=== PATIENT | male | born 1985 | race Caucasian/White ===

== ENCOUNTER 2018-02-05 14:17 | Emergency (ER) | payer OTHER ==
[~2018-02-05] VITALS: Ht 193 cm; Wt 131.5 kg
[~2018-02-05 14:17] MED LIST: ALEVE220 MG PO; AUGMENTIN 875-1 EACH PO; BACTRIM DS TAB1 EACH PO; CEPHALEXIN500 MG PO; CLINDAMYCIN HC300 MG PO; CORTISPORIN EAR10 ML AD; CYCLOBENZAPRINE10 MG PO; DOXYCYCLINE HY100 MG PO; HYDROCODON-ACE1 EA10 PO; IBUPROFEN800 MG PO; KEFLEX500 MG PO; LIDOPIN28 GM TP; MELOXICAM7.5 MG PO; NAPROXEN500 MG PO; NASACORT10.8 ML NAS; NICOTINE PATCH1 EAC3 TD; NORCO 5-325 TA1 EACH PO; PERCOCET 10-321 EACH PO; PERCOCET 5-3251 EACH PO; RIFADIN300 MG PO; ROBAXIN-750750 MG PO; TERBINAFINE HCL30 GM TOP; TRAMADOL HCL50 MG PO; VALIUM5 MG PO; VICODIN 5-3001 EACH PO; VOLTAREN-XR100 MG PO
[2018-02-05] MEDS ORDERED: BACTRIM DS TAB1 EACH PO (15:11)
== END 2018-02-05 15:37 | disposition home or self-care (01) ==
LOC: ED 14:17
DX: L08.9 Local infection of the skin and subcutaneous tissue, unspecified (principal); F17.200 Nicotine dependence, unspecified, uncomplicated
CPT/HCPCS: 99283

== ENCOUNTER 2018-07-03 14:55 | Emergency (ER) | payer OTHER ==
[~2018-07-03] VITALS: Ht 195.6 cm; Wt 127.0 kg
[2018-07-03] MEDS ORDERED: NORCO 5-325 TA1 EACH PO (15:55)
== END 2018-07-03 16:23 | disposition home or self-care (01) ==
LOC: ED 14:55
DX: S83.92XA Sprain of unspecified site of left knee, initial encounter (principal); X58.XXXA Exposure to other specified factors, initial encounter; J45.909 Unspecified asthma, uncomplicated; F17.200 Nicotine dependence, unspecified, uncomplicated
CPT/HCPCS: 73560; 99283-25

== ENCOUNTER 2019-08-20 07:31 | Day surgery (SDC) | payer OTHER ==
[~2019-08-20] VITALS: Ht 193 cm; Wt 124.7 kg
[2019-08-20] MEDS ORDERED: CHANTIX1 MG PO (07:47)
--- NOTE | 2019-08-20 09:34 | NUR ---
08/20/19 0934 Celeste,Joceline 0931 PT ARRIVED TO PACU ON 3L VIA NC, PT WAKES EASILY TO VERBAL STIMULI. RESP EVEN AND UNLABORED. PT REORIENTED TO PACU AND ENCOURAGED TO PASS AIR/GAS. PT FALLS BACK TO SLEEP, SNORING NOTED.
--- NOTE | 2019-08-21 06:14 | OR ---
[facility] [address], [place] [address] Signed DATE OF OPERATION: 08/20/2019 SURGEON: Troy Rebolledo MD PREOPERATIVE DIAGNOSES: 1. Sister with history of Crohn disease, age 28. 2. Rectal bleeding and pain. 3. Left lower quadrant and suprapubic abdominal pain. 4. Chronic diarrhea and constipation. POSTOPERATIVE DIAGNOSES: 1. Minimal internal hemorrhoids. 2. Tiny shallow acute posterior midline anal fissure. PROCEDURE: Colonoscopy with random cold biopsies. ESTIMATED BLOOD LOSS: None. INDICATIONS: Sherron is a 34-year-old gentleman asked to see me for a colonoscopy. He said he is having anal issues. He told me his sister was diagnosed with Crohn disease around age 28. He has had intermittent rectal bleeding and some pain. Overall, I think it is better. In the office, he thought it was better but not quite gone. He also talked about pain in the left lower quadrant and suprapubic area for about four months. He said he has had chronic diarrhea and constipation for a long time. He talked about a stool sample in December of 2018. It was negative. His primary care provider, I have asked him to see me with respect to the above. I gave him a pamphlet on colonoscopy. We looked at that together along with the risks including, but not limited to gas bloating, crampy abdominal pain, bleeding, perforation requiring surgery, and missed diagnosis. We also discussed the need for IV conscious sedation. Given his prior history of methamphetamine abuse and his current history of marijuana, I had warned him that he may or may not be adequately sedated with our Versed and fentanyl. If that were the case, we might have to reschedule with an anesthesia provider. He had expressed understanding and wished to proceed. PROCEDURE NOTE: Sherron was taken into our endoscopy suite and placed in the left lateral decubitus position. He was given a total of 10 mg of Versed and 200 mcg of fentanyl to cover the Electronically Signed By: TROY REBOLLEDO MD 08/21/19 0614 PATIENT NAME: SHERRON HINTON OPERATIVE REPORT DATE OF : 87 REPORT #: [id number] PHYSICIAN: TROY REBOLLEDO MD PCP: PILI MOODY REPORT IS CONFIDENTIAL AND NOT TO BE RELEASED WITHOUT AUTHORIZATION [facility] [address], [place] [address] Signed case. A digital rectal exam was performed and I could see a very tiny shallow anal fissure in the posterior midline. This is acute and is healing well. I am sure in another week or two it will be gone. He had good sphincter tone. He does have what looks like chronic pale ridges of skin around the anus and I wonder if he does not have some chronic pruritus ani. After this, the adult colonoscope was introduced and advanced under direct visualization of the camera into the cecum itself. It took extra sedation and abdominal compression in order to advance the scope. His prep was slightly below average. We had taken pictures throughout for photodocumentation. We could see the appendiceal orifice and the ileocecal valve. We made two attempts to turn the camera into the ileum without success. He was moving around quite a bit even with significant Versed and fentanyl. Consequently, we slowly withdrew the scope. We took random biopsies throughout his entire colon and rectum. Nevertheless, we saw no evidence of any inflammatory changes or other concerns in his colon or rectum. Upon retroflexion of the scope, he has some very routine small internal hemorrhoid tissue. No evidence of any recent or acute bleeding. The gas was then suctioned out. The colonoscope removed. Sherron tolerated the procedure quite well. RECOMMENDATIONS: I will see Sherron back in my office in 7 to 14 days to review his results. I suspect this is all from an acute fissure that is almost healed. Troy Rebolledo MD ALB/MODL /[id number] cc: MARLA Bee MD Copies: TROY REBOLLEDO MD ~ Electronically Signed By: TROY REBOLLEDO MD 08/21/19 0614 PATIENT NAME: SHERRON HINTON OPERATIVE REPORT DATE OF : 87 REPORT #: [id number] PHYSICIAN: TROY REBOLLEDO MD PCP: PILI MOODY REPORT IS CONFIDENTIAL AND NOT TO BE RELEASED WITHOUT AUTHORIZATION
--- NOTE | 2019-08-21 14:54 | PATH ---
[facility] [address] [place], [place] [address] Signed SPECIMEN(S): A COLON SPECIMEN SOURCE: A. COLON CLINICAL HISTORY: Preop: Family history colon CA; diarrhea. Postop: Minimal internal hemorrhoids. MICROSCOPIC DESCRIPTION: Sections reveal multiple biopsies of colonic mucosa. The epithelial surface is intact and has retained mucus-secreting ability. The basement membrane is not thickened. Glands are simple and tubular and reach all the way to the muscularis mucosae. The lamina propria is not expanded and contains small numbers of plasma cells, lymphocytes and infrequent eosinophils. No acute inflammatory cells, excess intraepithelial lymphocytes, crypt abscess, areas of fibrosis, or granulomas are seen. There is no evidence of malignancy or atypia. LJA:emb FINAL PATHOLOGIC DIAGNOSIS: Mucosa, colon, random biopsies: - No microscopic pathologic diagnosis. LJA:emb:C2NR GROSS DESCRIPTION: The specimen, labeled "NC, #1," is received in formalin and consists of five ovalle soft tissue fragment(s) that measure 0.3-0.4 cm in greatest dimension. The specimen is entirely submitted in cassette (A1). FB (under the direct supervision of a pathologist) The Gross Description was prepared using a voice recognition system. The report was reviewed for accuracy; however, sound-alike word errors, addition and/or deletions may occur. If there is any question about this report, please contact Client Services. PERFORMING LABORATORY: The technical component was performed by [facility], [address] [place] [id number] (Power Operator: Tami Shultz MD; CLIA# [id number]). [facility] [address] [address] (CLIA# [id number]). PATIENT NAME: SHERRON HINTON PATHOLOGY DATE OF : 87 REPORT #: [id number] PHYSICIAN: [facility] PCP: PILI MOODY REPORT IS CONFIDENTIAL AND NOT TO BE RELEASED WITHOUT AUTHORIZATION [address] [place] [address] Signed Diagnostician: Cameron Snyder MD Pathologist Electronically Signed 08/21/2019 Copies: ~ PATIENT NAME: SHERRON HINTON PATHOLOGY DATE OF : 87 REPORT #: [id number] PHYSICIAN: [facility] PATH[facility] PCP: PILI MOODY REPORT IS CONFIDENTIAL AND NOT TO BE RELEASED WITHOUT AUTHORIZATION
== END 2019-08-20 10:21 | disposition home or self-care (01) ==
LOC: OPS 07:31 → DS 07:31 → OPS 09:00 → DS 09:00 → OPS 10:21
PROVIDERS: Colon & Rectal Surgery
PROC: 0DBE8ZX Excision of Large Intestine, Via Natural or Artificial Opening Endoscopic, Diagnostic (ICD-10-PCS; principal; 2019-08-20 09:00)
DX: K64.8 Other hemorrhoids (principal); K60.0 Acute anal fissure; K52.9 Noninfective gastroenteritis and colitis, unspecified; F17.210 Nicotine dependence, cigarettes, uncomplicated; K59.00 Constipation, unspecified; Z87.19 Personal history of other diseases of the digestive system; Z79.899 Other long term (current) drug therapy
CPT/HCPCS: 99153; G0500; J2250; J3010

== ENCOUNTER 2020-11-14 15:09 | Emergency (ER) | payer OTHER ==
[~2020-11-14] VITALS: Ht 193 cm; Wt 144.7 kg
[~2020-11-14 15:09] MED LIST changes: +CHANTIX1 MG PO
[2020-11-14] MEDS ORDERED: FUROSEMIDE20 MG PO (15:27)
[2020-11-14] MEDS ORDERED: CEPHALEXIN500 MG PO (18:43)
[2020-11-14] MEDS ORDERED: HYDROCODON-ACE1 EA10 PO (18:54)
--- NOTE | 2020-11-14 19:23 | EKG ---
[facility] [address] [facility] [place], [place] [address] Signed Sinus tachycardia Otherwise normal ECG When compared with ECG of 22-OCT-2016 15:33, No significant change was found Confirmed by GUMARO KRUEGER DO ([id number]) on 11/14/2020 7:23:45 PM Electronically Signed By: GUMARO KRUEGER DO 11/14/201922 PATIENT NAME: SHERRON HINTON JAYNA Electrocardiogram DATE OF : 87 PHYSICIAN: GUMARO KRUEGER DO REPORT #: [id number] REPORT IS CONFIDENTIAL AND NOT TO BE RELEASED WITHOUT AUTHORIZATION
== END 2020-11-14 19:12 | disposition home or self-care (01) ==
LOC: ED 15:09
DX: L03.116 Cellulitis of left lower limb (principal); R60.0 Localized edema; J45.909 Unspecified asthma, uncomplicated; F17.200 Nicotine dependence, unspecified, uncomplicated; Z79.899 Other long term (current) drug therapy
CPT/HCPCS: 71045; 80053; 83735; 83880; 84484; 85025; 93005; 93010; 99284-25; J7030

== ENCOUNTER 2022-11-17 17:15 | Emergency (ER) | payer OTHER ==
[~2022-11-17] VITALS: Ht 193 cm; Wt 137.0 kg
[~2022-11-17 17:15] MED LIST changes: +FUROSEMIDE20 MG PO
[2022-11-17] MEDS ORDERED: HYDROCODON-ACE1 EA10 PO (19:17)
[2022-11-17] MEDS ORDERED: LEVOFLOXACIN500 MG PO (19:17)
[2022-11-17 20:24] VITALS: BP 142/87
== END 2022-11-17 20:26 | disposition home or self-care (01) ==
LOC: ED 17:15
DX: N45.1 Epididymitis (principal); F17.200 Nicotine dependence, unspecified, uncomplicated
CPT/HCPCS: 36415; 76870; 80053; 81003; 83605; 85025; 85610; 85730; 96365; 96375; 96376; 99284-25; A9270; J0696; J1170

== ENCOUNTER 2022-11-21 15:10 | Inpatient (IN) | payer OTHER ==
[~2022-11-21] VITALS: Ht 193 cm; Wt 138.0 kg
[~2022-11-21 15:10] MED LIST changes: +LEVOFLOXACIN500 MG PO
--- OUTSIDE RECORDS SUMMARY | 2022-11-21 15:12 | XMS ---
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 Care History Medical/Surgical 07/05/2018 [facility] SET UP PCP APT FOR PATIENT TO ESTABLISH CARE WITH PCP JANE HUNT AT [facility]. - DATE OF APT IS 07/17/18 @ 10:45AM. E.D. VISIT COUNT (12 MO.) [address] [facility]. TOTAL 2 NOTE: Visits indicate total known visits. ED/UCC VISIT TRACKING (12 MO.) 11/21/2022 15:[address] [facility] [place] TYPE: Emergency COMPLAINT: - GENITAL PAIN 11/17/2022 17:18 [facility] [place] TYPE: Emergency COMPLAINT: - PAIN IN GENITAL AREA INPATIENT VISIT TRACKING (12 MO.) No inpatient visits to display in this time frame [email or web address]
[2022-11-21 20:52] VITALS: BP 113/93
--- NOTE | 2022-11-21 21:01 | NUR ---
PT TO FLOOR WITH [facility] VIA STRETCHER. BEDSIDE REPORT RECEIVED. PT ALERT AND ORIENTED. ABLE TO TRANSFER SELF FROM STRETCHER TO BED. VS WNL. SCROTAL EDEMA AND REDNESS NOTED. SCROTUM ELEVATED ON TOWEL. DIRECTOR OF OPERATIONS HOME HEALTH IN ROOM FOR ADMISSION.
--- NOTE | 2022-11-21 21:07 | NUR ---
PATIENT ARRIVED TO THE FLOOR VIA STRECTCHER. PATIENT ABLE TO SLEF TRANSFER FROM STRETCHER TO BED. PATIENTS ADMISSION COMPLETED. IV ABX INFUSING PER ORDER. PLAN OF CARE DISCUSSED AND ALL QUESTIONS ANSWERED. PATIENT DENIES ANY NEEDS. PATIENT RATES PAIN IN SCROTUM AT A 2/10 AND DENIES THE NEED FOR PAIN MEDICATION AT THIS TIME. CALL LIGHT IN REACH.
--- NOTE | 2022-11-21 22:43 | NUR ---
ADMISSION ASSESSMENT COMPLETE. PT REPORTS SCROTAL PAIN "CREEPING UP" PRN FOR PAIN ADMIN PER EMAR. SCROTUM REMAINS ELEVATED. PT DENIES NAUSEA. IV ABX INFUSING WNL. PT ORIENTED TO ROOM AND NURSE CALL LIGHT. PT DENIES QUESTIONS OR CONCERNS. CALL LIGHT IN REACH.
[2022-11-22] VITALS (7 sets, daily range): BP systolic 121–155; BP diastolic 75–91
--- NOTE | 2022-11-22 00:24 | NUR ---
PT RESTING IN BED WITH EYES CLOSED. RESPIRATIONS EVEN. CALL LIGHT IN REACH.
--- NOTE | 2022-11-22 02:10 | NUR ---
PT RESTING IN BED WITH EYES CLOSED. AWAKENS EASILY. VS OBTAINED. PT DUE TO VOID. WATER GLASS FILLED. REPORTS SCROTAL PAIN IS TOLERABLE. SCROTUM ELEVATED ON TOWEL. NO FURTHER NEEDS AT THIS TIME. CALL LIGHT IN REACH.
--- NOTE | 2022-11-22 04:13 | NUR ---
PT RESTING IN BED WITH EYES CLOSED. RESPIRATIONS EVEN. CALL LIGHT IN REACH.
--- NOTE | 2022-11-22 06:00 | NUR ---
PT UP TO BR WITH SBA TO VOID 500 ML YELLOW URINE. GAIT STEADY. BACK TO BED, GRACIE FAIR. PRN FOR 5/10 SCROTAL PAIN ADMIN PER EMAR. VS AND I&O OBTAINED. NO FURTHER NEEDS.
--- NOTE | 2022-11-22 06:43 | NUR ---
CALL LIGHT ANSWERED. PT WITH LARGE EMESIS. PRN FOR N/V ADMIN PER EMAR. IV ABX INFUSING PER ORDER. NO FURTHER NEEDS.
--- NOTE | 2022-11-22 07:26 | NUR ---
REPORT FROM CLARISSA BINGHAM.
--- NOTE | 2022-11-22 08:51 | NUR ---
MORNING ASSESSMENT IS COMPLETE. PATIENT RATES SCROTAL PAIN 4/10 AFTER PAIN MEDICATIONS. SCROTUM IS ELEVATED, PATIENT IS ABLE TO HESITANTLY VOID, NO DRAINAGE NOTED. IV DAPTOMYCIN GIVEN. 4-HOUR IV ZOSYN IS CURRENTLY INFUSING. PATIENT FAMILY IN TO VISIT. NO OTHER NEEDS AT THIS TIME.
--- NOTE | 2022-11-22 09:05 | NUR ---
PATIENT GIVEN IV DILAUDID FOR 4/10 SCROTAL PAIN. PLAN TO GIVEN PERCOCET AT 1000.
--- NOTE | 2022-11-22 10:16 | NUR ---
PT CALL LIGHT ANSWERED. PT REQ BR NEEDS. PT ASSISTED TO BR. SBA. PT TO PULL CALL LIGHT WHEN DONE. PT PULLED CALL LIGHT. PT BACK TO BED. NO NEEDS. CALL LIGHT WITHIN REACH
--- NOTE | 2022-11-22 11:31 | NUR ---
PATIENT REPORTS 2/10 PAIN, WOULD LIKE TO TAKE A SHOWER TODAY.
--- NOTE | 2022-11-22 11:46 | NUR ---
SPOKE TO PATIENT ABOUT THE DISCHARGE PLAN. 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 PATIENT HAS A SUPPORTIVE FAMILY.THE PATIENT'S DEMOGRAPHICS ARE CORRECT IN THE MEDICAL RECORD. PATIENT DOES NOT USE DME.PATIENT CAN DO HIS OWN ADLS.PATIENT CAN AFFORD HIS HOUSE PAYMENT AND FOOD.PATIENT HAS NO ISSUES OR CONCERNS THAT BUILDING GUARD DEPUTY SHERIFF CAN HELP WITH AT THIS TIME. PATIENT WILL NOTIFY CM IF THE PATIENT HAS FUTURE CONCERNS.
--- NOTE | 2022-11-22 13:50 | NUR ---
PT ALERT, ORIENTED AND VISITING WITH HIS AND CHILD. PT SHARED HE HAS A VERY DEMANDING LIFE. 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 LOTS OF STRESS AND PRESSURE, SEEMS SUPPORTIVE, GAVE ENCOURAGEMENT. PT REQUESTED PRAYER AND WILL FOLLOW
--- NOTE | 2022-11-22 17:53 | NUR ---
PATIENT SUDDENLY HAD SPIKE IN PAIN, RIGHT TESTICLE. ICE PACK PROVIDED, CALL TO DR. ZULETA, STAT SCROTAL ULTRASOUND ORDERED, TECH CALLED. 0.5MG OF IV DILAUDID GIVEN. PATIENT DESCRIBES PAIN SUDDEN STABBING, SUBSIDES, AND RESUMES. PATIENT IS NAUSEATED AND DIAPHORETIC, MOANING IN PAIN. PLAN TO STAY IN ROOM WITH PATIENT.
--- NOTE | 2022-11-22 18:18 | NUR ---
ANGULAR DEVELOPER IN ROOM.
--- NOTE | 2022-11-22 18:19 | NUR ---
SECOND DOSE OF DILAUDID 0.5MG IV GIVEN PER VERBAL ORDER WHILE DR. ZULETA WAS IN THE ROOM.
--- NOTE | 2022-11-22 18:37 | NUR ---
ULTRASOUND COMPLETE, LAB IN TO DRAW BLOOD.
--- NOTE | 2022-11-22 18:42 | NUR ---
This RAW JUICE WEIGHER and RAW JUICE WEIGHER Tia entered the patients room to obtain intake, outtake and vital signs for 1800 checks. Upon entry patient was in distress. Pt reported scrotal pain of 9/10. Nurse was immediately notified. Nurse is currently in patient room with the patient.
--- NOTE | 2022-11-22 18:44 | NUR ---
PATIENT REPORTS THAT RIGHT TESTICLE PAIN IS MORE LIKE A 4-5/10 DURING "SPASMS" AND FEELS LIKE THE DILAUDID IS FINALLY WORKING.
--- NOTE | 2022-11-22 19:35 | NUR ---
REPORT RECEIVED FROM DAY SHIFT RN. PT LYING IN BED ALERT AND ORIENTED. REPORTS INTENSE NAUSEA AND 5/10 RIGHT SIDE SCROTAL PAIN. PRN FOR PAIN AND N/V ADMIN PER ORDER. VS WNL. RESPIRATIONS EVEN. PT REPORTED SOME SHORT TERM RELIEF THEN BEGAN HAVING SHARP 9/10 INTERMITTEN PAIN ON RIGHT SIDE OF SCROTUM WITH CONTINUED "WAVES" OF INTENSE NAUSEA. ADDITIONAL PRN FOR PAIN AND N/V ADMIN. PT CURRENTLY RESTING QUIETLY. PT NPO PER MD ORDER. IVF INFUSING WNL.
[2022-11-22] MEDS ORDERED: DAPTOMYCIN500 MG IV (19:56)
[2022-11-22] MEDS ORDERED: HYDROMORPHO1 MG/1 M9 IV (19:57)
[2022-11-22] MEDS ORDERED: TYLENOL325 MG PO (19:57)
--- NOTE | 2022-11-22 20:17 | NUR ---
PT COMPLAINS OF NAUSEA AND EMESIS, PRN NAUSEA MED PROVIDED. COVID TEST COMPLETED. NO OTHER NEEDS AT THIS TIME. CALL LIGHT IN REACH.
--- NOTE | 2022-11-22 21:12 | NUR ---
REPORT CALLED TO [facility] EMERGENCY ROOM RN CONOR. IN TO UPDATE PT. PT REPORTS NAUSEA IMPROVED. C/O RIGHT SIDE SCROTAL PAIN 10/10. PRN FOR PAIN ADMIN PER EMAR. PERSONAL BELONGINGS PACKED UP.
--- NOTE | 2022-11-22 21:37 | NUR ---
PT OFF FLOOR WITH [facility] TO TRANSFER TO [facility] EMERGENCY ROOM. ALL PERSONAL BELONGINGS SENT WITH PATIENT.
== END 2022-11-22 21:37 | disposition short-term general hospital (02) | DRG 728 ==
LOC: ED 15:10 → MS 15:12
PROVIDERS: ADMIT Family Medicine; ATTEND Internal Medicine
DX: N49.2 Inflammatory disorders of scrotum (principal); N17.9 Acute kidney failure, unspecified; Z20.822 Contact with and (suspected) exposure to COVID-19; J45.909 Unspecified asthma, uncomplicated; F17.210 Nicotine dependence, cigarettes, uncomplicated; Z86.14 Personal history of Methicillin resistant Staphylococcus aureus infection; Z79.1 Long term (current) use of non-steroidal anti-inflammatories (NSAID); Z98.890 Other specified postprocedural states
CPT/HCPCS: 36415; 76870; 80048; 80053; 80202; 81003; 83735; 84100; 85025; 86140; 96361; 96365; 96372; 96375; 96376; 99284-25; 99406; G0378; J0780; J0878; J1170; J1650; J1885; J2405; J2543; J3370; J7030; J7060; U0002

== ENCOUNTER 2023-06-13 11:23 | Emergency (ER) | payer OTHER ==
[~2023-06-13] VITALS: Ht 193 cm; Wt 139.1 kg
[~2023-06-13 11:23] MED LIST changes: +ACETAMINOPHEN500 MG PO; +AMLODIPINE BESYL5 MG PO; +DAPTOMYCIN500 MG IV; +HYDROMORPHO1 MG/1 M9 IV; +OXYCODON-ACETA1 EAC2 PO; +RENVELA800 MG PO; +TYLENOL325 MG PO
[2023-06-13] MEDS ORDERED: BACTRIM DS TAB1 EACH PO (11:47)
[2023-06-13 11:55] VITALS: BP 145/102
== END 2023-06-13 11:57 | disposition home or self-care (01) ==
LOC: ED 11:23
DX: T81.500A Unspecified complication of foreign body accidentally left in body following surgical operation, initial encounter (principal); S70.322A Blister (nonthermal), left thigh, initial encounter; J45.909 Unspecified asthma, uncomplicated; F17.200 Nicotine dependence, unspecified, uncomplicated; Z86.14 Personal history of Methicillin resistant Staphylococcus aureus infection; X58.XXXA Exposure to other specified factors, initial encounter
CPT/HCPCS: 99283

== ENCOUNTER 2025-04-14 15:02 | Emergency (ER) | payer OTHER ==
[~2025-04-14] VITALS: Ht 193 cm; Wt 142.8 kg
[2025-04-14] MEDS ORDERED: MELOXICAM15 MG PO (16:16)
[2025-04-14] MEDS ORDERED: VITAMIN D31250 MC1 PO (16:16)
[2025-04-14] MEDS ORDERED: BUPROPION HCL150 MG PO (16:16)
[2025-04-14] MEDS ORDERED: METFORMIN HCL500 M1 PO (16:17)
[2025-04-14] MEDS ORDERED: MUPIROCIN22 GM TOP (18:15)
[2025-04-14 18:23] VITALS: BP 159/98
== END 2025-04-14 18:22 | disposition home or self-care (01) ==
LOC: ED 15:02
DX: L02.416 Cutaneous abscess of left lower limb (principal); F17.200 Nicotine dependence, unspecified, uncomplicated; Z86.14 Personal history of Methicillin resistant Staphylococcus aureus infection; Z79.1 Long term (current) use of non-steroidal anti-inflammatories (NSAID); Z79.84 Long term (current) use of oral hypoglycemic drugs; Z79.899 Other long term (current) drug therapy
CPT/HCPCS: 99282